=== PATIENT | male | born 1950 | race Caucasian/White ===

== ENCOUNTER → 2017-09-29 | Outpatient (CLI) | payer OTHER | LOC: BHFA 08:30 | PROVIDERS: ATTEND Internal Medicine Cardiovascular Disease | DX: I25.10 Atherosclerotic heart disease of native coronary artery without angina pectoris (principal) | CPT/HCPCS: 78452; 93017; A9500 ==

== ENCOUNTER → 2017-10-01 | Outpatient (CLI) | payer OTHER | LOC: BHFA 14:00 | PROVIDERS: ATTEND Internal Medicine Cardiovascular Disease | DX: I25.10 Atherosclerotic heart disease of native coronary artery without angina pectoris (principal) ==

== ENCOUNTER 2018-10-12 07:11 | Observation (INO) | payer OTHER ==
[2018-10-12] MEDS ORDERED: ASPIRIN EC 325 MG TAB PO ONE (07:14)
[2018-10-12] MEDS ORDERED: NS 1,000 ML IV ONE (07:14)
[2018-10-12] MEDS ORDERED: diphenhydrAMINE 25 MG CAP PO ONE ×2 (07:14→07:47)
[2018-10-12] MEDS ORDERED: DIAZEPAM 5 MG TAB PO ONE (07:14)
[2018-10-12] MEDS ORDERED: FAMOTIDINE 20 MG TAB PO ONE (07:14)
[2018-10-12] MEDS ORDERED: FAMOTIDINE 20 MG TAB ONE (07:47)
[2018-10-12] MEDS ORDERED: DIAZEPAM 5 MG TAB ONE (07:47)
[2018-10-12 07:50] LABS: PLATELET COUNT 288 10^3/uL (150-400)
[2018-10-12 07:59] LABS: INR 1.01 (0.83-1.16); PROTIME(PATIENT) 13.5 SEC (12.0-15.0)
--- NOTE | 2018-10-12 08:07 | PDHPUP ---
History & Physical Update H&P update statement: This history and physical update is based on an assessment of the patient which was completed after admission or registration (within 24 hours), but prior to the surgery/procedure. H&P update: H&P reviewed & patient examined, no change in patient's condition since H&P completed
--- NOTE | 2018-10-12 08:07 | PDPROPOC ---
Sedation Plan of Care Sedation Plan of Care: mental status noted, patient educated of risks, benefits , alternatives, patient can tolerate sedation ASA Classification: ASA 2 Planned drugs: fentanyl, midazolam Mallampati Score: Class 2 Mallampati Reference Image: Patient passed 3-3-2 rule?: Yes
[2018-10-12] MEDS ORDERED: CLOPIDOGREL BISULFATE 75 MG TAB ONE (08:12)
[2018-10-12] MEDS ORDERED: CLOPIDOGREL BISULFATE 75 MG TAB PO ONE (08:15)
[2018-10-12] MEDS ORDERED: fentaNYL 100 MCG/2 ML INJ ONE (08:28)
[2018-10-12] MEDS ORDERED: MIDAZOLAM 2 MG/2 ML VIAL ONE (08:28)
[2018-10-12] MEDS ORDERED: LIDOCAINE 1% 300 MG/30 ML SDV ONE (08:28)
[2018-10-12] MEDS ORDERED: IOPAMIDOL (ISOVUE-370) 150 ML BTL IV ONE ×3 (08:29→10:13)
[2018-10-12] MEDS ORDERED: BIVALIRUDIN 250 MG/5 ML VIAL IV ONE (09:40)
[2018-10-12] MEDS ORDERED: NITROGLYCERIN 1,500 MCG/15 ML VIAL MISC ONE (10:15)
[2018-10-12] MEDS ORDERED: TEMAZEPAM 15 MG CAP PO PRN (10:36)
[2018-10-12] MEDS ORDERED: NITROGLYCERIN 0.4 MG BTL SL PRN ×2 (10:36→10:38)
[2018-10-12] MEDS ORDERED: HYDROCODONE/APAP 5/325 TAB PO PRN (10:36)
[2018-10-12] MEDS ORDERED: ATROPINE SULFATE 1 MG/10 ML SYR IVP PRN (10:36)
[2018-10-12] MEDS ORDERED: LORazepam 2 MG/ML INJ IVP PRN (10:36)
[2018-10-12] MEDS ORDERED: OXYCODONE/APAP 5/325 TAB PO PRN (10:36)
[2018-10-12] MEDS ORDERED: ONDANSETRON 4 MG/2 ML VIAL IVP PRN (10:36)
--- NOTE | 2018-10-12 11:40 | CPIP ---
DATE OF PROCEDURE: 10/12/2018 INDICATION FOR PROCEDURE: Angina. PROCEDURES: 1. Nonselective right groin sheathogram. 2. Bilateral coronary angiography. 3. Left heart catheterization. 4. Left ventriculogram. 5. Right internal mammary artery angiography. 6. Left internal mammary artery angiography to the left anterior descending. 7. Saphenous vein angiography to distal right coronary artery. 8. Aortic root angiography. 9. Percutaneous coronary intervention of proximal left circumflex artery and marginal 1 artery utili adelso multiple Synergy drug-eluting stents. HISTORY: Briefly, this is a 68-year-old male with history of bypass surgery. The patient has been h aving worsening exertional angina as outpatient. Given these findings, patient consented for a left heart catheterization. DESCRIPTION OF PROCEDURE: After informed consent, the patient was brought to [facility] where the right brittany in was prepped and draped in sterile fashion. Using lidocaine, a short 6-Yemeni sheath in right comm on femoral artery verified angiographically. Through the 6-Yemeni sheath, a JL4 catheter was advance d to left coronary artery. Images of left coronary artery revealed normal left main. Left circumfle x system gave off a tiny marginal 1 proximally, had a 90% lesion proximally. There was a 2nd small m arginal 2 artery coming off. There was a stump of a 3rd marginal artery and the vessel terminated in to a distal marginal artery which was healthy and free of disease. The LAD was a tiny vessel which w as subtotally occluded after its takeoff of a diagonal artery. After these images were obtained, JL4 catheter was removed. JR4 catheter was advanced through right coronary artery. Imaged right campbell ry artery revealed subtotal RCA with numerous subtotal occlusions in its prox mid area. After these images were obtained, the JR4 catheter was pulled back into the 1st graft, which was a saphenous vein graft to the RPDA which retrograde filled into the RPLS. This graft appeared to have mild plaque di sease, but otherwise was widely patent. No distal disease in the RPD nor RPLS. JR4 catheter was pul led back into the right innominate artery where angiography was obtained with a nonselective view, wh ich revealed the DANIEL artery did not appear to be utilized as a graft. This catheter was pulled back into the left subclavian artery and switched out for a DAVILA catheter. Angiography of left internal mammary artery showed a serpiginous but widely patent DAVILA anastomosing to the mid LAD. The distal L AD appeared to be widely patent. Of note, there was a robust collateral coming off the apical LAD se gment to what appeared to be a marginal 3 or 4 artery and retrograde filling into a marginal 2 artery . After these images were obtained, the DAVILA catheter was removed. A pigtail was catheter was advan zakiya in the left ventricle. EDP is 15 mmHg. Left ventriculogram in the GOODRICH projection showed EF of 5 5% with no wall motion abnormality. No pullback gradient between the LV and the aorta. Pigtail cath eter was then placed in the aortic root where angiography was obtained. Aortic root angiography reve aled no other presence of any other grafts other than the aforementioned grafts that were seen. Pigt ail catheter was removed. INTERVENTIONAL REPORT: At this time, the patient had been administered 600 Plavix p.o., started on a n Angiomax bolus and drip. Utilizing an EBU 3.75 guide catheter, left coronary artery was selectivel y engaged. Choice PT wire was placed down the left circumflex artery. Predilatation commenced with a 3.0 x 12 balloon at 14 atmospheres. After this was performed, attempts were made to place a 3.5 x 12 stent; however, this was unsuccessful due to tortuosity. We just placed a foster wire with a [employer] ter wire. After this was performed, the stent was reintroduced and was successful in being placed in the proximal circumflex. The Choice PT wire was removed. The stent was deployed at 14 atmospheres across the lesion in the proximal left circumflex. After this was performed, angiographic images wer e obtained, which showed excellent patency of the stented regions. The [place] wire was then pulled back and gently probed the stumped area of the marginal artery. This actually was successful in get ting through the lesion in the proximal marginal artery and was placed distally. Most likely, this r epresented the lesions we saw that were retrograde filling from the apical LAD collaterals. We did p redilate this area with a 2.5 x 12 balloon at the ostial portion at 10 atmospheres. After this was p erformed, the balloon was removed. Angiographic images obtained which showed now a clear evidence of a lesion in the proximal marginal artery which fed 3 very large marginal arteries. We decided to pr oceed with stenting this vessel with a 2.25 x 12 stent. This was deployed successfully at 14 atmosph eres. After deployment, angiographic images were obtained, which showed excellent patency of the matthew nt in the distal vessels. However, there was some haziness proximal to the stent, most likely some p otential plaque shift. We covered this area with a 2.5 x 8 mm drug-eluting stent. This was deployed at 12 atmospheres. After deployment, angiographic images obtained, which showed excellent patency o f the stented regions with no evidence of dissection or perforation. Of note, the trifurcating elias nal system which was now reopened, the inferior branch of this inferior portion of this trifurcation had an ostial pinch of approximately 60% to 70%. However, there was CHEMO 3 flow through the entire c irculation. We decided to administer 200 mcg of nitroglycerin, retake the images. Once again, this showed excellent patency of the distal vessels with CHEMO 3 flow through vessels. Though there was an ostial pinch of the inferior branch of the marginal artery, we decided not to intervene as there was excellent flow through this area. At this time, the wire was then pulled back. The guide catheter was removed over an 0.035 wire. Right groin was closed with 6-Yemeni Angio-Seal. Patient tolerated the procedure well with no complications. IMPRESSION: Successful orthodox of flow to left circumflex proximal lesion and marginal artery ch ronic total occlusion utilizing multiple Synergy drug-eluting stents. PLAN: The patient will have 3 hours bed rest. Will be admitted to observation overnight. Discharge d within 24 hours with aspirin and Plavix, as well as home medications. /[id number]/MODL
--- NOTE | 2018-10-12 16:25 | CPEKG ---
Test Reason : OPEN Blood Pressure : / mmHG Vent. Rate : 067 BPM Atrial Rate : 068 BPM P-R Int : 351 ms QRS Dur : 126 ms QT Int : 455 ms P-R-T Axes : 000 -38 056 degrees QTc Int : 481 ms Sinus rhythm Prolonged [place] interval Left bundle branch block Confirmed by Miley Lazo ([id number]) on 10/12/2018 4:25:12 PM Referred By: Confirmed By:Miley Lazo
--- NOTE | 2018-10-12 16:27 | CPEKG ---
Test Reason : OPEN Blood Pressure : / mmHG Vent. Rate : 053 BPM Atrial Rate : 053 BPM P-R Int : 348 ms QRS Dur : 126 ms QT Int : 457 ms P-R-T Axes : 040 -41 -08 degrees QTc Int : 430 ms Sinus rhythm Prolonged [place] interval Left bundle branch block Confirmed by Miley Lazo ([id number]) on 10/12/2018 4:26:39 PM Referred By: Confirmed By:Miley Lazo
[2018-10-12] MEDS ORDERED: LATANOPROST 0.005% 2.5 ML OPHT DROPS EACHEYE SCH (21:00)
[2018-10-13 04:19] LABS: PLATELET COUNT 305 10^3/uL (150-400)
--- NOTE | 2018-10-13 07:41 | PDCARPN ---
Cardiology Progress Note Chief Complaint: SOB/CP Assessment/Plan: Assessment: s/p PCI to LCX Plan: 10/13/18 07:40 doing very well OOB d/c home plavix/ASA f/u next week Subjective: doing well Reviewed/Discussed With: multidisciplinary team Time Spent with Patient: greater than 25 minutes Time Spent with Patient: Greater than 25 minutes spent on this patients care, greater than 50% of time spent counseling, educating, and coordinating care regarding the above mentioned plan. Objective: Vital Signs (8 Hrs) Temp Pulse Resp BP Pulse Ox 10/13/18 04:00 36.9 C 78 16 110/66 92 Intake/Output (24 Hrs) 10/12/18 10/13/18 10/14/18 05:59 05:59 05:59 Intake Total 1300 Output Total 1375 Balance -75 Intake: Oral (ml) 900 IV Intake (ml) 400 Output: Urine (ml) 1375 Urinal 1375 Other: Weight 95.254 kg Intake Quantity Yes Sufficient Number of Voids Toilet 2 Urinal 0 Result Diagrams: 10/13/18 03:20 10/13/18 03:20 - Physical Exam Constitutional: healthy appearing Eyes: PERRL Ears, Nose, Mouth, Throat: moist mucous membranes Cardiovascular: regular rate and rhythm Peripheral Pulses: 1+: femoral (R), femoral (L) Respiratory: clear to auscultate bilat Gastrointestinal: no tenderness Genitourinary: no suprapubic tenderness Skin: no rashes Musculoskeletal: no muscular tenderness Neurologic: AAOx3 Psychiatric: cooperative ICD10 Worksheet Patient Problems: Problems Problem Status Onset CAD (coronary artery disease) Acute - ICD10 Problem Qualifiers (1) CAD (coronary artery disease) Qualifiers: Coronary Disease-Associated Artery/Lesion type: [place] artery [place] vs. transplanted heart: [place] heart Associated angina: with stable angina Qualified Code(s): I25.118 - Atherosclerotic heart disease of [place] coronary artery with other forms of angina pectoris
[2018-10-13 07:48] VITALS: BP 95/70
[2018-10-13] MEDS ORDERED: Herbals/Supplements -Info Only PO SCH (09:00)
[2018-10-13] MEDS ORDERED: FENOFIBRATE 145 MG TAB PO SCH (09:00)
[2018-10-13] MEDS ORDERED: ASPIRIN 81 MG CHEWABLE TAB PO SCH (09:00)
[2018-10-13] MEDS ORDERED: CLOPIDOGREL BISULFATE 75 MG TAB PO SCH (09:00)
[2018-10-13] MEDS ORDERED: TAMSULOSIN HCL 0.4 MG CAP PO SCH (09:00)
[2018-10-13] MEDS ORDERED: ATORVASTATIN CALCIUM 40 MG TAB PO SCH (09:00)
[2018-10-13] MEDS ORDERED: CHOLECALCIFEROL VIT D3 2,000 UNITS TAB/CAP PO SCH (09:00)
--- NOTE | 2018-10-13 10:02 | ASMTDCNOTE ---
Case Management Discharge Discharge Order Complete? Answers: Yes Patient to Obtain Answers: Independently Medications Transportation Arranged Answers: Family/Friends Transport will Pick (Date 10/13/2018 12:00 AM & Time) Family Notified Answers: Yes Notes: in the room Discharge Comments Notes: Pt discharged independently with support from . No therapies ordered. Pt and comfortable with plan. No CM needs noted at this time. Date Signed: 10/13/2018 10:02 AM Electronically Signed By:Rosey Bey
--- NOTE | 2018-10-13 10:13 | ASDISCHSUM ---
Discharge Information Plan Status:Home with No Needs Medically Cleared to Leave:10/12/2018 Discharge Date:10/12/2018 CM D/C Disposition:Home, Routine, Self-Care ADT D/C Disposition:Home, Routine, Self-Care Projected Discharge Date:10/12/2018 Transportation at D/C:Family Discharge Delay Reason: Follow-Up Date:10/12/2018 Discharge Slot: Final Diagnosis:angina Placement Information Patient Contact Information Contact Name:TERRI Relationship: Address: Work Phone: City: [facility] Phone: State/Zip Code: Email: Financial Information Financial Class:Medicare Primary Plan Desc:MEDICARE OUTPATIENT Primary Plan Number:[id number] Secondary Plan Desc:[place] Secondary Plan Number:[id number] Assessment Information LACE LACE Length of stay for Answers: Less than 1 day current admission Acuity / Level of Answers: No Care: Did the patient have an inpatient admission? Comorbidities - select Answers: Coronary Artery Disease all that apply # of Emergency department Answers: 0 visits in the last 6 months Score: 2 Date Signed: 10/13/2018 10:12 AM Electronically Signed By:Rosey Bey Case Management Discharge Plan Note Case Management Discharge Discharge Order Complete? Answers: Yes Patient to Obtain Answers: Independently Medications Transportation Arranged Answers: Family/Friends Transport will Pick (Date 10/13/2018 12:00 AM & Time) Family Notified Answers: Yes Notes: in the room Discharge Comments Notes: Pt discharged independently with support from . No therapies ordered. Pt and comfortable with plan. No CM needs noted at this time. Date Signed: 10/13/2018 10:02 AM Electronically Signed By:Rosey Bey Intervention Information
--- NOTE | 2018-10-13 11:16 | GDS ---
DISCHARGE DIAGNOSIS: Coronary artery disease. HOSPITAL COURSE: This is a 68-year-old male with history of recently worsening anginal symptoms with history of bypass surgery. Given his symptoms, the patient was consented for a left heart catheteri zation. The patient underwent left heart catheterization was found to have a 90% proximal left circu mflex lesion with 100% occluded trifurcating marginal artery. The patient with successful PCI to bot h the proximal left circumflex artery as well as the proximal marginal artery. Of note, his DAVILA to LAD graft and saphenous vein graft to RCA were widely patent. The patient did very well post procedu re and was started on baby aspirin and Plavix, will be discharged this morning. We will follow up in the office in 1 week's time. /[id number]/MODL
--- NOTE | 2018-10-13 18:09 | CPEKG ---
Test Reason : OPEN Blood Pressure : / mmHG Vent. Rate : 074 BPM Atrial Rate : 074 BPM P-R Int : 309 ms QRS Dur : 120 ms QT Int : 374 ms P-R-T Axes : 071 -60 115 degrees QTc Int : 415 ms Sinus rhythm Prolonged [place] interval left bundle branch block. Compared with 10/12/2018 at 10:45 a.m. no significant change Confirmed by Miley Lazo ([id number]) on 10/13/2018 6:08:49 PM Referred By: Confirmed By:Miley Lazo
== END 2018-10-13 11:04 | disposition home or self-care (01) ==
LOC: FCATH 07:11 → F2W 10:36
PROVIDERS: ADMIT Internal Medicine Cardiovascular Disease; ATTEND Internal Medicine Cardiovascular Disease
PROC: B2171ZZ Fluoroscopy of Right Internal Mammary Bypass Graft using Low Osmolar Contrast (ICD-10-PCS; principal; 2018-10-12)
PROC: 4A023N8 Measurement of Cardiac Sampling and Pressure, Bilateral, Percutaneous Approach (ICD-10-PCS; principal; 2018-10-12)
PROC: B2181ZZ Fluoroscopy of Left Internal Mammary Bypass Graft using Low Osmolar Contrast (ICD-10-PCS; principal; 2018-10-12)
PROC: B2151ZZ Fluoroscopy of Left Heart using Low Osmolar Contrast (ICD-10-PCS; principal; 2018-10-12)
PROC: 0270356 Dilation of Coronary Artery, One Artery, Bifurcation, with Two Drug-eluting Intraluminal Devices, Percutaneous Approach (ICD-10-PCS; principal; 2018-10-12)
PROC: B21F1ZZ Fluoroscopy of Other Bypass Graft using Low Osmolar Contrast (ICD-10-PCS; principal; 2018-10-12)
DX: I25.119 Atherosclerotic heart disease of native coronary artery with unspecified angina pectoris (principal); Z95.5 Presence of coronary angioplasty implant and graft
CPT/HCPCS: 93005; 93459; C1725; C1760; C1769; C1874; C1887; C9601; C9607; J0583; J1644; J2250; J3010; Q9967; C9600